=== PATIENT | female | born 1980 | race Caucasian/White ===

== ENCOUNTER 2020-02-09 16:16 | Emergency (ER) | payer OTHER ==
[~2020-02-09] VITALS: Ht 160 cm; Wt 86.2 kg
[2020-02-09] MEDS ORDERED: CELEXA 10 MG TA10 M1 PO (16:27)
[2020-02-09] MEDS ORDERED: KEPPRA1000 MG PO (16:28)
[2020-02-09 17:02] LABS: INFLUENZA A ANTIGEN Negative (Negative); INFLUENZA B ANTIGEN Negative (Negative)
[2020-02-09] MEDS ORDERED: PREDNISONE 20 M20 M1 PO (17:29)
[2020-02-09] MEDS ORDERED: PROAIR HFA8.5 GM INH (17:29)
[2020-02-09] MEDS ORDERED: ZPAK PO (17:29)
[2020-02-09 17:40] VITALS: BP 121/70
== END 2020-02-09 17:41 | disposition home or self-care (01) ==
LOC: M.ERS 16:16
PROVIDERS: Nurse Practitioner Family
DX: J20.9 Acute bronchitis, unspecified (principal); Z90.710 Acquired absence of both cervix and uterus; Z90.49 Acquired absence of other specified parts of digestive tract; Z98.890 Other specified postprocedural states